=== PATIENT | male | born 1970 | race Two or more races ===

== ENCOUNTER 2024-03-26 06:39 | Day surgery (SDC) | payer MEDICAID ==
[~2024-03-26] VITALS: Ht 182.9 cm; Wt 103.4 kg
[~2024-03-26 06:39] MED LIST: ALBU108A5 IN; CARV3.1240 PO; CLOP75TA28 PO; DAPA1TAB4 PO; FLUT1INH28 IN; FURO40TA4 PO; INSU1INJ19 SC; ISOS1TAB28 PO; LOSA-535 PO; OMEP20TA PO; ROSU40TA81 PO; SEMA2INJ3 SC
[2024-03-26] MEDS ORDERED: LIDOCAINE 2%HCL (LOCAL ANESTH.) INJ 10ml MDV ONE (08:05)
[2024-03-26] MEDS ORDERED: IOHEXOL 350 MG/ML 100ML IJ ONE (08:06)
[2024-03-26] MEDS ORDERED: IODIXANOL 320MG/ML 100ML BTL IV ONE (08:06)
[2024-03-26] MEDS ORDERED: HEPARIN IN NS 1000Units/500mL 1,500 ML ONE (08:06)
[2024-03-26] MEDS ORDERED: VERAPAMIL 2.5MG/ML INJ 2ML VIAL IV ONE (08:21)
[2024-03-26] MEDS ORDERED: MIDAZOLAM HCL 2MG/2ML 2ml VIAL (1mg/ml) ONE (08:21)
[2024-03-26] MEDS ORDERED: ANGIOMAX 250 MG VIAL IV ONE (08:21)
[2024-03-26] MEDS ORDERED: HEPARIN SODIUM (PORCINE) 5000 UNITS/ML 1ML VIAL ONE (08:21)
[2024-03-26] MEDS ORDERED: fentaNYL CITRATE 100 MCG/2 ML VL ONE (08:21)
[2024-03-26] MEDS ORDERED: SODIUM CHL 0.9% 0 ML ONE (08:21)
[2024-03-26] MEDS ORDERED: hydrALAZINE HCL 20 MG/ML VL ONE (08:51)
[2024-03-26 08:55] VITALS: BP 180/142; PULSE 86; RESP 19; O2SAT 98
[2024-03-26 09:08] VITALS: BP 186/108; PULSE 88; RESP 17; O2SAT 98
[2024-03-26 09:23] VITALS: BP 184/112; PULSE 81; RESP 15; O2SAT 98
[2024-03-26 09:38] VITALS: BP 171/112; PULSE 85; RESP 12; O2SAT 98
== END 2024-03-26 10:11 | disposition home or self-care (01) ==
LOC: CATH 06:39
PROVIDERS: ATTEND Internal Medicine
DX: R07.9 Chest pain, unspecified (principal); F17.210 Nicotine dependence, cigarettes, uncomplicated; Z53.8 Procedure and treatment not carried out for other reasons; Z79.82 Long term (current) use of aspirin; Z79.01 Long term (current) use of anticoagulants; Z79.899 Other long term (current) drug therapy; Z98.890 Other specified postprocedural states
CPT/HCPCS: 93005; 93458; C1894; J0360; J1644; J2001; J7030; Q9967; J2250